=== PATIENT | female | born 1990 | race Two or more races ===

== ENCOUNTER → 2017-12-27 07:48 | Outpatient (CLI) | payer BC | END | disposition home or self-care (01) | LOC: D.MRI 07:00 | DX: N64.3 Galactorrhea not associated with childbirth (principal) ==

== ENCOUNTER → 2018-05-23 11:14 | Outpatient (CLI) | payer BC | END | disposition home or self-care (01) | LOC: D.RAD 11:14 | DX: R05 Cough (principal) ==